=== PATIENT | male | born 1955 | race Caucasian/White ===

== ENCOUNTER 2023-06-16 19:58 | Emergency (ER) | payer MEDICARE, SELFPAY ==
[2023-06-16] MEDS ORDERED: Glucagon 1 MG/ML KIT ONE (20:44)
== END 2023-06-16 21:29 | disposition home or self-care (01) ==
LOC: NAV ERS 19:58
DX: K22.2 Esophageal obstruction (principal); I10 Essential (primary) hypertension
CPT/HCPCS: 36416; 96374; J1611